=== PATIENT | female | born 1970 | race Caucasian/White ===

== ENCOUNTER 2021-05-14 05:56 | Day surgery (SDC) | payer OTHER ==
[~2021-05-14] VITALS: Ht 185.4 cm; Wt 134.0 kg
[~2021-05-14 05:56] MED LIST: IBUP600 PO; Norco 5-325 Ta1 EACH PO; [UNRECOGNIZED DRUG - CODE] PO
[2021-05-14] MEDS ORDERED: Mobic15 MG PO (06:32)
--- NOTE | 2021-05-14 06:44 | NUR ---
History, Chart, Medications and Allergies reviewed before start of procedure. Patient confirms NPO status and agrees with scheduled surgery. Lungs clear T/O to Auscultation.
--- NOTE | 2021-05-14 06:53 | NUR ---
NOZIN NASAL LEATHERSMITH X3 AMPULES USED TO CLEAN NARES BILAT PER ORDER.
--- NOTE | 2021-05-14 11:32 | NUR ---
PT ARRIVED TO THE ROOM AT APPROXIMATELY 1035. SHE IS ALERT AND ORIENTED. PT IS TEARFUL BUT PLEASANT AND HAPPY. SHE REPORTS WANTING TO TALK WITH HER FAMILY AND STATES ENJOYING CONVERSATION WITH STAFF. PT REPORTED BURNING SENSATION TO R HIP, OXYCODONE GIVEN FOR PAIN MANAGEMENT. WILL CONTINUE TO MONITOR.
--- NOTE | 2021-05-14 18:25 | NUR ---
SHIFT SUMMARY PT IS POD#0 FROM R [facility] WITH DR. JAIME. PAIN HAS BEEN MANAGED WITH PO PAIN MEDICATION. PT ATTEMPTED TO WORK WITH PHYSICAL THERAPY, SHE WAS ABLE TO SIT AT THE EDGE OF THE BED BUT BECAME DIZZY AND NAUSEATED, BP REMAINED STABLE. PT IS TOLERATING PO. SHE IS IN GOOD SPIRITS AND HER S/O IS AT THE BEDSIDE FOR SUPPORT. VSS. WILL MONITOR UNTIL REPORT TO RY SOTELO.
--- NOTE | 2021-05-15 04:12 | NUR ---
PT IS IN BED AT THIS TIME WHERE SHE REMAINS MUCH OF THE NIGHT AND IS RESTING COMFORATBLY IN STABLE CONDITION. SHE IS RECOVERING FROM RIGHT HIP ARTHROPLASTY. HER PAIN IS CONTROLLED VIA MEDICINE, REST, AND POSITION CHANGE. SHE IS ABLE TO MOVE TO [facility] APPROPRIATELY TO HER CONDITION. GOOD CIRCULATION NOTED EVIDENCED BY APPROPRIATE MOVEMENT OF THE RIGHT LOWER LEG, PALPABLE PULSE IN THE RIGHT FOOT, AND CAP REFILL OF < 3SEC. SHE IS ALERT AND ORIENTED, ASSISTED WITH BATHROOM AND TOILETING NEEDS, ENCOURAGED TO PRACTICE COUGH, DEEP BREATHING AND USE IS TO FACILITATE AIR EXCHANGE POST SURGERY. HER CALL LIGHT WAS GIVEN TO HER AND WAS ENCOURAGED TO CALL FOR HELP WHEN ASSISTANCE IS NEEDED SHE IS MONITORED.
[2021-05-15 04:44] LABS: BASOPHILS ABSOLUTE AUTO 0.02 K/mm3 (0.00-0.23); BASOPHILS PERCENT AUTO 0 % (0-2); EOSINOPHILS PERCENT AUTO 0 % (0-6); Hematocrit 27.1 % (33.0-51.0); IMMATURE GRAN ABSOLUTE AUTO 0.07 K/mm3 (0.00-0.10); IMMATURE GRAN PERCENT AUTO 1 % (0-1); LYMPHOCYTES PERCENT AUTO 10 % (21-46); MONOCYTES ABSOLUTE AUTO 1.33 K/mm3 (0.16-1.47); MONOCYTES PERCENT AUTO 10 % (4-13); Mean Corpuscular HGB 30.8 pg (26.0-34.0); Mean Corpuscular HGB Conc 33.2 g/dL (31.5-36.5); Mean Corpuscular Volume 93 fL (80-100); Mean Platelet Volume 8.8 fL (9.1-12.4); NEUTROPHILS ABSOLUTE AUTO 10.69 K/mm3 (1.96-9.15); NEUTROPHILS PERCENT AUTO 80 % (41-73); Platelet Count 315 K/mm3 (150-400); RDW Coefficient Variation 15.2 % (11.7-14.2); RDW Standard Deviation 51.8 fL (35.1-46.3); Red Blood Cell Count 2.92 M/mm3 (3.80-5.20); White Blood Cell Count 13.41 K/mm3 (4.00-11.30)
[2021-05-15 05:46] LABS: Anion Gap 5 mmol/L (6-16); Blood Urea Nitrogen 23 mg/dL (8-24); Bun/Creatinine Ratio 30.5 (12.0-20.0); CO2, Blood 25 mmol/L (21-32); Calcium, Blood 7.9 mg/dL (8.5-10.1); Chloride, Blood 110 mmol/L (98-108); Creatinine, Blood 0.76 mg/dL (0.40-1.00); Glomerular Filtration Rate >60 (60-); Glucose, Blood 123 mg/dL (70-99); Potassium, Blood 4.6 mmol/L (3.5-5.5); Sodium, Blood 140 mmol/L (136-145)
[2021-05-15] MEDS ORDERED: ASPI81CH PO (08:53)
[2021-05-15] MEDS ORDERED: Percocet 5-3251 EACH PO (08:53)
--- NOTE | 2021-05-15 09:57 | NUR ---
DISCHARGE SUMMARY: PENDING D/C HOME. WORKED WITH PT, CLEAR TO D/C. DISCHARGE INSTRUCTION PROVIDED- PT VERBALIZED UNDERSTANDING. ALL BELONGINGS TO BE TAKEN BY PT ONCE RIDE ARRIVES. NO APPARENT DISTRESS NOTED AT THIS TIME. WILL CONTINUE TO MONITOR UNTIL D/C HOME.
== END 2021-05-15 12:01 | disposition home or self-care (01) ==
LOC: ORSCMMR 05:56 → SURS 10:35 → ORSCMMR 15:00
PROVIDERS: Orthopaedic Surgery
PROC: 0SR90JZ Replacement of Right Hip Joint with Synthetic Substitute, Open Approach (ICD-10-PCS; principal; 2021-05-14 07:30)
DX: M16.11 Unilateral primary osteoarthritis, right hip (principal); I48.91 Unspecified atrial fibrillation; E66.01 Morbid (severe) obesity due to excess calories; Z68.39 Body mass index [BMI] 39.0-39.9, adult; Z87.891 Personal history of nicotine dependence; Z79.899 Other long term (current) drug therapy
CPT/HCPCS: 36415; 72170; 80048; 85025; 97110; 97110-CQ; 97116-CQ; 97162; 97530-CQ; A9270; C1776; J0171; J0690; J0735; J1100; J1885; J2250; J2405; J2704; J2795; J3010; J7120

== ENCOUNTER → 2023-03-14 | Outpatient (CLI) | payer OTHER ==
[~2023-03-14] MED LIST changes: +ASPI81CH PO; +Mobic15 MG PO; +Percocet 5-3251 EACH PO
[2023-03-14 14:11] LABS: Follicle Stimulating Hormone 57.6 mIU/ml
[2023-03-15 10:49] LABS: RPR Reactive (Nonreactive)
== END ==
LOC: LAB 09:45 → LAB SHORT 09:45
PROVIDERS: Registered Nurse Community Health
DX: N95.1 Menopausal and female climacteric states (principal); Z86.19 Personal history of other infectious and parasitic diseases
CPT/HCPCS: 83001; 83002; 86592; 86593; 86780

== ENCOUNTER → 2024-02-21 | Outpatient (CLI) | payer OTHER ==
[2024-02-21 19:22] LABS: BASOPHILS ABSOLUTE AUTO 0.03 K/mm3 (0.00-0.23); BASOPHILS PERCENT AUTO 0 % (0-2); EOSINOPHILS ABSOLUTE AUTO 0.13 K/mm3 (0.00-0.68); EOSINOPHILS PERCENT AUTO 2 % (0-6); Hematocrit 39.6 % (33.0-51.0); Hemoglobin 12.9 g/dL (11.5-16.0); IMMATURE GRAN ABSOLUTE AUTO 0.04 K/mm3 (0.00-0.10); IMMATURE GRAN PERCENT AUTO 1 % (0-1); LYMPHOCYTES ABSOLUTE AUTO 1.71 K/mm3 (0.84-5.20); LYMPHOCYTES PERCENT AUTO 22 % (21-46); MONOCYTES ABSOLUTE AUTO 0.62 K/mm3 (0.16-1.47); MONOCYTES PERCENT AUTO 8 % (4-13); Mean Corpuscular HGB 29.9 pg (26.0-34.0); Mean Corpuscular HGB Conc 32.6 g/dL (31.5-36.5); Mean Corpuscular Volume 92 fL (80-100); Mean Platelet Volume 9.4 fL (9.1-12.4); NEUTROPHILS ABSOLUTE AUTO 5.24 K/mm3 (1.96-9.15); NEUTROPHILS PERCENT AUTO 67 % (41-73); Platelet Count 330 K/mm3 (150-400); Red Blood Cell Count 4.32 M/mm3 (3.80-5.20); White Blood Cell Count 7.77 K/mm3 (4.00-11.30)
[2024-02-21 19:54] LABS: Alanine Aminotransfer (ALT/SGP 29 U/L (12-78); Albumin, Blood 3.6 g/dL (3.4-5.0); Alk Phos 152 U/L (50-136); Anion Gap 12 mmol/L (3-11); Aspartate Aminotrans (AST/SGOT 24 U/L (12-37); Bilirubin, Total 0.3 mg/dL (0.1-1.0); Blood Urea Nitrogen 27 mg/dL (8-24); Bun/Creatinine Ratio 34.5 (12.0-20.0); CHOL/HDL RATIO 3.6; CO2, Blood 23 mmol/L (21-32); Calcium, Blood 8.7 mg/dL (8.5-10.1); Chloride, Blood 112 mmol/L (98-108); Cholesterol 210 mg/dL (50-200); Creatinine, Blood 0.78 mg/dL (0.40-1.00); Globulin, Blood 3.7 g/dL (2.2-4.0); Glomerular Filtration Rate 92 (60-); Glucose, Blood 94 mg/dL (70-99); HDL Cholesterol 58 mg/dL (>39); LDL/HDL RATIO 2.2; Low Density Lipoprotein Chol 129 mg/dL (0-110); Potassium, Blood 4.5 mmol/L (3.5-5.5); Sodium, Blood 142 mmol/L (136-145); Total Protein, Blood 7.3 g/dL (6.4-8.2); Triglycerides 117 mg/dL (30-160); Very Low Density Lipoprot Chol 23 mg/dL (6-32)
== END | disposition home or self-care (01) ==
LOC: LAB 17:41 → LAB SHORT 17:41
PROVIDERS: Nurse Practitioner Family
DX: Z00.00 Encounter for general adult medical examination without abnormal findings (principal); E55.9 Vitamin D deficiency, unspecified
CPT/HCPCS: 80053; 80061; 82306; 84443; 85025